=== PATIENT | female | born 1930 | race Caucasian/White ===

== ENCOUNTER 2017-01-31 14:13 | Emergency (ER) | payer MEDICARE ==
[~2017-01-31] VITALS: Ht 160 cm; Wt 55.9 kg
[2017-01-31 14:41] VITALS: BP 118/76; PULSE 61; RESP 16; O2SAT 100
--- NOTE | 2017-01-31 17:15 | ED.REPORT ---
HPI-Abd Pain F 40 and Over Date of Service Jan 31, 2017 ED Provider: Akash Zhang MD Pt is a generally healthy 86 y/o female w/ a hx of constipation presenting to the ED c/o hard black stools onset 3 weeks ago. She states she is often constipated and normally takes stool softeners if she is constipated for 1 week or longer. Pt denies red blood in stools, abdominal pain, nausea, vomiting, fevers, chills. The patient has no history of GI bleed or colon cancer. She has never had a colonoscopy. She does not take anticoagulants or iron. Nursing Notes Stated Complaint: BLOOD IN URINE Chief Complaint: Female Abdominal Pain Nursing Notes Reviewed: Yes Allergies: Coded Allergies: No Known Allergies (Unverified , 01/31/17) General Time Seen by MD: 16:47 Chief Complaint Other (dark stools) Hx Obtained From: Patient Arrived By: Walk-in Sudden in Onset?: No Onset Occurred: More than a week ago... (3 weeks) Symptom Duration: Since onset Progression since Onset: Intermittent Severity: Current: No pain currently Severity: Maximum: No pain Past Medical History Past Medical History Hypertension Constipation Past Surgical History Appendectomy Smoking History Unknown if Ever Smoker Social History Alcohol Use: 1-3 per day Review of Systems Constitutional: Denies: Chills, Fever Respiratory: Denies: Non-productive cough, Shortness of breath Cardiovascular: Denies: Chest pain, Dyspnea on exertion GI: Reports: Bloody/tarry stool (black stools), Constipation, Denies: Abdominal pain, Melena, Nausea, Vomiting Complete sys rev & neg: except as marked. Physical Exam Vital Signs Vital Signs (First) Date Time Temp Pulse Resp B/P Pulse Ox O2 Delivery O2 Flow Rate FiO2 01/31/17 14:41 36.5 61 16 118/76 100 Room Air Initial VS: Reviewed, Vital signs normal Head / Eyes: Atraumatic, Normocephalic, PERRL ENT: Mucous membranes moist, Conjunctiva normal, No scleral icterus Neck: Supple, Full range of motion Extremities: Vascular intact, Neuro intact, No swelling Skin: Warm, Dry, No cyanosis Neurologic: Alert, Oriented, Nonfocal Psychiatric: Mood/affect normal, Behavior normal, Normal thought content General/Constitutional: Awake, Alert, No acute distress, Well appearing, Cooperative, Not toxic appearing Respiratory / Chest: Breath sounds NL, Breath sounds = bilat, No respiratory distress, No rales, No rhonchi, No wheezing, No stridor Cardiovascular: Heart rate NL, Regular rhythm, Heart sounds NL, No gallop, No murmurs, No rubs, Cap refill not delayed, Peripheral circulation NL Abdomen: Atraumatic, Soft, Non-tender, No guarding, No rebound, No distention, No palpable mass Back: Full range of motion, Painless range of motion Rectum / Perineum: Atraumatic, Blood - occult heme -, No discharge, No fecal impaction, No fissures, No hemorrhoids, No lesions, No mass Dark brown stools Guaiac negative x2 attempts Interpretation & Diagnostics Lab Results Interpretation Result Diagram: 01/31/17 1735 Test 01/31/17 17:35 White Blood Count 2.9th/mm3 (3.8-10.1) Red Blood Count 3.90mil/mm3 (3.90-5.20) Hemoglobin 12.8g/dL (12.0-15.6) Hematocrit 35.8% (35.0-46.0) Mean Corpuscular Volume 91.8fL (81-100) Mean Corpuscular Hemoglobin 32.8pg (27.0-35.0) Mean Corpuscular Hemoglobin Concent 35.8% (32.0-37.0) Red Cell Distribution Width 12.0% (12.3-15.4) Platelet Count 200bil/L (150-400) Neutrophils (%) (Auto) 42.5% (40-74) Lymphocytes (%) (Auto) 40.8% (14-46) Monocytes (%) (Auto) 14.6% (4-12) Eosinophils (%) (Auto) 1.4% (0-5) Basophils (%) (Auto) 0.7% (0-3) Re-Eval/Medical Decision Med Decision/Clinical Course 86-year-old female presenting with dark stools times several weeks. She is concerned there melanotic. She also reports constipation. Her guaiac is negative and she does not have any melanotic stools here. Her hemoglobin is stable at 12. She will be discharged home with plans to continue her regimen for constipation. Recommend follow-up with primary doctor return if any GI bleeding or signs/symptoms anemia. Re-Evaluation/Progress : Time of Eval: 18:05 Re-Evaluation/Progress Note: Pt rechecked. Informed pt of plan for treatment. Pt understands and agrees with plan for treatment. F/U instructions and RTER warnings given. All questions addressed. Counseled Regarding: Diagnosis, Lab results, Need for follow-up, When/why to return to ED Discharge & Departure Primary Impression: Dark stools Additional Impression: Constipation Constipation type: unspecified constipation type Qualified Code: K59.00 - Constipation, unspecified Disposition: Home Discharge Condition All VS Reviewed: Yes Condition: Stable Patient Instructions: Constipation (ED) Additional Instructions: Labs today were normal. There was no sign of anemia or blood loss. The rectal exam showed dark stools that had no occult blood in them. Return to the emergency department if you experience unusual fatigue, lightheadedness, passing out, blood in stools, vomiting, abdominal pain, or for other concerning symptoms. Follow-up with your primary care doctor later this week for a recheck. Referrals: Dinah Christopher MD (PCP) [facility] Attestation Portions of this note were transcribed by Sorin Morales. I, Dr. Zhang, personally performed the history, physical exam and medical decision-making; I reviewed and confirmed the accuracy of the information in the transcribed note. Signed by Kassandra Aguiar, 01/31/17 - [id number] copies to: Dinah Christopher MD, Ben M MD Jan 31, 2017 17:15 SORIN MORALES Jan 31, 2017 17:22
[2017-01-31 17:46] LABS: BASOPHILS % (AUTO) 0.7 % (0-3); EOSINOPHILS % (AUTO) 1.4 % (0-5); MONOCYTES % (AUTO) 14.6 % (4-12); Mean Corpuscular Hemoglobin 32.8 pg (27.0-35.0); Mean Corpuscular Volume 91.8 fL (81-100); NEUTROPHILS % (AUTO) 42.5 % (40-74); Platelet Count 200 bil/L (150-400)
[2017-01-31 18:36] VITALS: BP 135/62; PULSE 62; RESP 18; O2SAT 100
== END 2017-01-31 18:37 | disposition home or self-care (01) ==
LOC: SED 14:13
DX: R19.5 Other fecal abnormalities (principal); K59.00 Constipation, unspecified; I10 Essential (primary) hypertension